=== PATIENT | female | born 1975 | race African-American/Black ===

== ENCOUNTER 2017-08-11 11:14 | Inpatient (IN) | payer MEDICAID ==
[~2017-08-11] VITALS: Ht 162.6 cm; Wt 82.5 kg
[2017-08-11] MEDS ORDERED: SODIUM CHLORIDE 0.9% 1,000 ML IVB ONE (11:30)
[2017-08-11 11:52] LABS: Basophils # (auto) 0 uL; Basophils % (auto) 0.2 % (0.0-2.0); Eosinophils # (auto) 0 uL; Hematocrit 40.8 % (36.0-46.0); Hemoglobin 13.4 g/dL (12.2-16.2); Lymphocytes # (auto) 2.2 uL; Lymphocytes % (auto) 46.8 % (10.0-50.0); Mean Corpuscular Hemoglobin 26.2 pg (28.0-32.0); Mean Corpuscular Hgb Conc. 32.9 g/dL (32.0-36.0); Mean Corpuscular Volume 79.5 fL (80.0-100.0); Mean Platelet Volume 7.7 fL (7.4-10.4); Monocytes # (auto) 0.5 uL; Monocytes % (auto) 10.5 % (0.0-12.0); Neutrophils % (auto) 42.5 % (37.0-80.0); Nucleated Red Blood Cells % 0.3 %; Platelet Count (auto) 247 10^3/uL (140-450); Red Cell Distribution Width 13.2 % (11.6-16.0); White Blood Cell 4.6 10^3/uL (4.4-10.8)
[2017-08-11 12:04] LABS: INR 0.97 (0.9-1.15); Partial Thromboplastin Time 27.5 sec (22.64-33.71); Prothrombin Time 10.6 sec (9.37-12.3)
[2017-08-11 12:14] LABS: Albumin 3.6 g/dL (3.4-5.0); BUN/Creatinine Ratio 18.9; Bilirubin, Total 1.2 mg/dL (0.2-1.0); Calcium 9.3 mg/dL (8.5-10.1); Potassium 4.2 mmol/L (3.5-5.1); Total Protein 8.6 g/dL (6.4-8.2)
[2017-08-11 12:41] LABS: Urine Bilirubin Negative (Negative); Urine Blood Negative /uL (Negative); Urine Color Yellow (Yellow); Urine Glucose Normal (Normal); Urine Ketone Negative (Negative); Urine Mucus FEW (None Seen); Urine Nitrite Negative (Negative); Urine RBC <1 /hpf (0 - 4); Urine Squamous Epithelial Cell FEW /hpf (<5); Urine Urobilinogen Normal (Negative); Urine pH 6.5 (5.0-8.0)
[2017-08-11] MEDS ORDERED: diphenhdrAMINE HCL 50 MG/1 ML VL IV ONE (13:45)
[2017-08-11] MEDS ORDERED: KETOROLAC TROMETH 30 MG/ML 1ML VIAL IV ONE (14:30)
[2017-08-11] MEDS ORDERED: SODIUM CHLORIDE 0.9% 1,000 ML IV SCH (16:36)
[2017-08-11] MEDS ORDERED: LACTULOSE 20Gm/30ML SOLN PO PRN (16:45)
[2017-08-11] MEDS ORDERED: cefTRIAXone 1GM/50ML D5W 50 ML IV ONE (16:45)
[2017-08-11] MEDS ORDERED: PROMETHAZINE HCL 25 MG/ML 1ML IV PRN (16:45)
[2017-08-11] MEDS ORDERED: ACETAMINOPHEN 500 MG TAB PO PRN (16:45)
[2017-08-11] MEDS ORDERED: TEMAZEPAM 15 MG CAP PO PRN (16:45)
[2017-08-11] MEDS ORDERED: LORazepam 0.5 MG TAB PO PRN (16:45)
[2017-08-11] MEDS: PANTOPRAZOLE 40 MG TAB PO SCH (17:10)
[2017-08-11] MEDS: metroNIDAZOLE 500MG/100ML 100 ML IV SCH (18:00)
[2017-08-11] MEDS ORDERED: ALPRAZolam 0.5 MG TAB PO ONE (18:15)
[2017-08-11 18:30] VITALS: BP 140/79
[2017-08-11 20:00] VITALS: BP_SYST 122; BP_SYST 140; BP_DIAS 57; BP_DIAS 79
[2017-08-11] MEDS: HYDROcodone-ACET 5/325MG TAB PO PRN (20:40)
[2017-08-11] MEDS ORDERED: METH10TA6 PO (21:33)
[2017-08-11] MEDS ORDERED: DIPH50TA9 PO (21:35)
[2017-08-11] MEDS ORDERED: PROP60CA8 PO (21:35)
[2017-08-11 22:00] VITALS: BP 128/76
[2017-08-11] MEDS: MORPHINE SULFATE 4 MG/ML SYRG IV PRN (23:15)
[2017-08-12] MEDS ORDERED: PROPRANOLOL HCL 20 MG TAB PO ONE (00:15)
[2017-08-12] MEDS ORDERED: METHIMAZOLE 5 MG TAB PO ONE (00:15)
[2017-08-12] MEDS: metroNIDAZOLE 500MG/100ML 100 ML IV SCH ×3 (00:45→12:00)
[2017-08-12] MEDS ORDERED: ACETAMINOPHEN 500 MG TAB PO ONE (01:30)
[2017-08-12] MEDS ORDERED: diphenhdrAMINE HCL 25 MG CAP PO ONE (01:30)
[2017-08-12 05:00] VITALS: BP 127/64
[2017-08-12 06:03] LABS: Hematocrit 34.3 % (36.0-46.0); Hemoglobin 11.4 g/dL (12.2-16.2); Mean Corpuscular Hemoglobin 26.6 pg (28.0-32.0); Mean Corpuscular Hgb Conc. 33.1 g/dL (32.0-36.0); Mean Corpuscular Volume 80.4 fL (80.0-100.0); Mean Platelet Volume 8.2 fL (7.4-10.4); Platelet Count (auto) 204 10^3/uL (140-450); Red Cell Distribution Width 12.9 % (11.6-16.0); White Blood Cell 3.9 10^3/uL (4.4-10.8)
[2017-08-12 06:18] LABS: Metamyelocytes % 0; Myelocytes % 0; Promyelocytes % 0; Reactive Lymphocytes 0
[2017-08-12 06:42] LABS: Albumin 2.8 g/dL (3.4-5.0); BUN/Creatinine Ratio 20.5; Bilirubin, Total 1.5 mg/dL (0.2-1.0); Calcium 8.6 mg/dL (8.5-10.1); Potassium 3.6 mmol/L (3.5-5.1); Total Protein 6.7 g/dL (6.4-8.2)
[2017-08-12 07:50] LABS: Platelet Estimate Adequate
[2017-08-12 07:51] LABS: Hypochromia Slight
[2017-08-12 07:55] LABS: Burr Cells FEW; Ovalocytes FEW
[2017-08-12 08:00] VITALS: BP 105/48
[2017-08-12] MEDS ORDERED: MORPHINE SULF INJ 2 MG/ML SYRINGE 1ML ONE (08:45)
[2017-08-12] MEDS ORDERED: cefTRIAXone 1GM/50ML D5W 50 ML IV SCH (09:00)
[2017-08-12] MEDS ORDERED: PANTOPRAZOLE 40 MG/10 ML VIAL IV SCH (10:00)
[2017-08-12] MEDS: PROPRANOLOL HCL 20 MG TAB PO SCH ×2 (10:00→22:30)
[2017-08-12] MEDS: METHIMAZOLE 5 MG TAB PO SCH (10:51)
[2017-08-12] MEDS: PANTOPRAZOLE 40 MG TAB PO SCH (10:51)
[2017-08-12 12:00] VITALS: BP 125/47
[2017-08-12] MEDS: SODIUM CHLORIDE 0.9% 1,000 ML IV SCH (16:36)
[2017-08-12 17:20] VITALS: BP 130/72
[2017-08-12 20:00] VITALS: BP 134/68
[2017-08-12] MEDS: MORPHINE SULFATE 4 MG/ML SYRG IV PRN (20:36)
[2017-08-13] VITALS (7 sets, daily range): BP systolic 110–143; BP diastolic 52–63
[2017-08-13] MEDS: diphenhdrAMINE HCL 25 MG CAP PO PRN (02:39)
[2017-08-13 06:01] LABS: Basophils # (auto) 0 uL; Basophils % (auto) 0.7 % (0.0-2.0); Eosinophils # (auto) 0 uL; Eosinophils % (auto) 0.2 % (0.0-7.0); Hematocrit 38.5 % (36.0-46.0); Hemoglobin 12.5 g/dL (12.2-16.2); Lymphocytes # (auto) 2.6 uL; Mean Corpuscular Hemoglobin 26.3 pg (28.0-32.0); Mean Corpuscular Hgb Conc. 32.5 g/dL (32.0-36.0); Mean Platelet Volume 8.4 fL (7.4-10.4); Monocytes # (auto) 0.4 uL; Monocytes % (auto) 9.4 % (0.0-12.0); Neutrophils # (auto) 1.5 uL; Neutrophils % (auto) 33.3 % (37.0-80.0); Nucleated Red Blood Cells % 0.3 %; Platelet Count (auto) 210 10^3/uL (140-450); Red Cell Distribution Width 13.2 % (11.6-16.0); White Blood Cell 4.5 10^3/uL (4.4-10.8)
[2017-08-13 06:04] LABS: Lymphocytes % (auto) 56.4 % (10.0-50.0)
[2017-08-13 06:29] LABS: BUN/Creatinine Ratio 17.8; Calcium 8.3 mg/dL (8.5-10.1); Magnesium 2.1 mg/dL (1.6-2.6); Potassium 3.9 mmol/L (3.5-5.1)
[2017-08-13] MEDS: PANTOPRAZOLE 40 MG TAB PO SCH (09:35)
[2017-08-13] MEDS: METHIMAZOLE 5 MG TAB PO SCH ×3 (09:36→21:56)
[2017-08-13] MEDS: PROPRANOLOL HCL 20 MG TAB PO SCH ×2 (09:36→21:56)
[2017-08-13] MEDS: SODIUM CHLORIDE 0.9% 1,000 ML IV SCH (09:37)
[2017-08-14] MEDS: HYDROcodone-ACET 5/325MG TAB PO PRN (01:31)
[2017-08-14] MEDS: diphenhdrAMINE HCL 25 MG CAP PO PRN (01:31)
[2017-08-14] MEDS: SODIUM CHLORIDE 0.9% 1,000 ML IV SCH (01:35)
[2017-08-14 05:19] VITALS: BP 95/54
[2017-08-14 05:22] VITALS: BP 91/52
[2017-08-14] MEDS ORDERED: METHIMAZOLE 5 MG TAB ONE ×2 (05:36→05:38)
[2017-08-14] MEDS: METHIMAZOLE 5 MG TAB PO SCH (06:08)
[2017-08-14 08:00] VITALS: BP 97/43
[2017-08-14] MEDS: PROPRANOLOL HCL 20 MG TAB PO SCH (08:59)
[2017-08-14] MEDS: PANTOPRAZOLE 40 MG TAB PO SCH (09:01)
[2017-08-14 11:49] LABS: Albumin 2.9 g/dL (3.4-5.0); Bilirubin, Total 0.6 mg/dL (0.2-1.0); Calcium 8.6 mg/dL (8.5-10.1); Potassium 4.1 mmol/L (3.5-5.1); Total Protein 7.2 g/dL (6.4-8.2)
[2017-08-14 13:09] VITALS: BP 105/61
== END 2017-08-14 15:40 | disposition home or self-care (01) ==
LOC: EDBD 11:14 → ER 11:14 → OVERFLOW 11:15 → EAST 18:17
PROVIDERS: ADMIT Internal Medicine; ATTEND Internal Medicine
DX: K80.20 Calculus of gallbladder without cholecystitis without obstruction (principal); I50.9 Heart failure, unspecified; E05.00 Thyrotoxicosis with diffuse goiter without thyrotoxic crisis or storm; I08.1 Rheumatic disorders of both mitral and tricuspid valves; M54.6 Pain in thoracic spine; M79.1 Myalgia; E03.9 Hypothyroidism, unspecified; G89.29 Other chronic pain; M94.0 Chondrocostal junction syndrome [Tietze]; Z87.891 Personal history of nicotine dependence; Z82.49 Family history of ischemic heart disease and other diseases of the circulatory system
CPT/HCPCS: 36415; 71010; 74176; 76705; 76830; 76856; 78226; 80048; 80053; 81001; 81025; 82150; 83690; 83735; 84439; 84443; 84481; 85007; 85025; 85027; 85610; 85652; 85730; 86850; 86900; 86901; 87081; 93306; 94761; 96361; 96374; 96375; J0696; J1885; J3490

== ENCOUNTER 2021-02-02 18:01 | Emergency (ER) | payer MEDICAID ==
[~2021-02-02] VITALS: Ht 162.6 cm; Wt 86.2 kg
[~2021-02-02 18:01] MED LIST: ATEN-60 PO; LEVO500T31 PO; METH10TA6 PO; METR500T PO
[2021-02-02] MEDS: PANTOPRAZOLE 40 MG TAB PO ONE (20:15)
[2021-02-02 20:44] VITALS: BP 121/70
[2021-02-02 22:00] LABS: Urine Bacteria NONE SEEN /hpf (None Seen); Urine Blood Negative /uL (Negative); Urine Specific Gravity 1.016 (1.001-1.035); Urine WBC <1 /hpf (0 - 5)
== END 2021-02-02 23:04 | disposition home or self-care (01) ==
LOC: ER 18:01
DX: K21.9 Gastro-esophageal reflux disease without esophagitis (principal); J01.90 Acute sinusitis, unspecified; Z20.822 Contact with and (suspected) exposure to COVID-19
CPT/HCPCS: 36415; 71045; 81001; 87426

== ENCOUNTER 2021-05-07 23:31 | Emergency (ER) | payer MEDICAID ==
[~2021-05-07] VITALS: Ht 162.6 cm; Wt 91.2 kg
[2021-05-08 02:01] LABS: Urine Bacteria NONE SEEN /hpf (None Seen); Urine Blood Negative /uL (Negative); Urine Mucus FEW (None Seen); Urine Specific Gravity 1.026 (1.001-1.035); Urine WBC <1 /hpf (0 - 5)
[2021-05-08 02:27] LABS: Basophils # (auto) 0 10 ^3/uL (0-0.2); Eosinophils # (auto) 0 10 ^3/uL (0-0.8); Eosinophils % (auto) 0.1 % (0.0-7.0); Hemoglobin 12.4 g/dL (12.2-16.2); Mean Corpuscular Hemoglobin 26.6 pg (28.0-32.0); Monocytes # (auto) 0.5 10 ^3/uL (0-1.3); Red Blood Cells 4.65 10^6/uL (4.0-5.20)
[2021-05-08 02:29] LABS: Basophils % (auto) 0.1 % (0.0-2.0); Hematocrit 37.7 % (36.0-46.0); Lymphocytes # (auto) 2.4 10 ^3/uL (0.4-5.4); Lymphocytes % (auto) 47.8 % (10.0-50.0); Mean Corpuscular Hgb Conc. 32.7 g/dL (32.0-36.0); Mean Corpuscular Volume 81.2 fL (80.0-100.0); Monocytes % (auto) 10.8 % (0.0-12.0); Neutrophils # (auto) 2.1 10 ^3/uL (1.6-8.6); Neutrophils % (auto) 41.2 % (37.0-80.0); Nucleated Red Blood Cells % 0.2 %; Platelet Count (auto) 207 10^3/uL (140-450); Red Cell Distribution Width 13.3 % (11.8-14.3)
[2021-05-08 02:31] LABS: INR 1.02 (0.9-1.15)
[2021-05-08 02:36] LABS: Albumin 3.4 g/dL (3.4-5.0); BUN/Creatinine Ratio 28.2; Magnesium 2.1 mg/dL (1.6-2.6)
[2021-05-08 02:40] LABS: Total Protein 7.6 g/dL (6.4-8.2)
[2021-05-08] MEDS ORDERED: IOHEXOL 300 MG/ML 100ML BOTTLE IJ ONE (05:36)
[2021-05-08 08:03] VITALS: BP 105/43
== END 2021-05-08 08:04 | disposition home or self-care (01) ==
LOC: ER 23:31
DX: R10.11 Right upper quadrant pain (principal); Z98.890 Other specified postprocedural states; Z88.8 Allergy status to other drugs, medicaments and biological substances; Z79.899 Other long term (current) drug therapy
CPT/HCPCS: 36415; 74177; 80053; 81001; 81025; 83605; 83690; 83735; 85025; 85610; 87491; 87591; 99285; Q9967

== ENCOUNTER 2022-09-11 15:39 | Inpatient (IN) | payer MEDICAID ==
[~2022-09-11] VITALS: Ht 162.6 cm; Wt 78.2 kg
[2022-09-11 16:33] LABS: Basophils # (auto) 0.1 10 ^3/uL (0-0.2); Basophils % (auto) 0.6 % (0.0-2.0); Eosinophils # (auto) 0 10 ^3/uL (0-0.8); Eosinophils % (auto) 0.1 % (0.0-7.0); Hematocrit 39.2 % (36.0-46.0); Hemoglobin 12.7 g/dL (12.2-16.2); Lymphocytes # (auto) 2.5 10 ^3/uL (0.4-5.4); Lymphocytes % (auto) 28.1 % (10.0-50.0); Mean Corpuscular Hemoglobin 26.3 pg (28.0-32.0); Mean Corpuscular Hgb Conc. 32.5 g/dL (32.0-36.0); Mean Corpuscular Volume 81.1 fL (80.0-100.0); Monocytes # (auto) 1.1 10 ^3/uL (0-1.3); Monocytes % (auto) 12.2 % (0.0-12.0); Neutrophils # (auto) 5.2 10 ^3/uL (1.6-8.6); Nucleated Red Blood Cells % 0.4 %; Red Blood Cells 4.83 10^6/uL (4.0-5.20); Red Cell Distribution Width 13.3 % (11.8-14.3); White Blood Cell 8.9 10^3/uL (4.4-10.8)
[2022-09-11 17:00] LABS: Albumin 3.3 g/dL (3.4-5.0); Calcium 8.8 mg/dL (8.5-10.1); Potassium 4.1 mmol/L (3.5-5.1)
[2022-09-11] MEDS ORDERED: ALUM & MAG HYDROX-SIMETH LIQ(MAALOX) 30 ML PO ONE (17:00)
[2022-09-11] MEDS ORDERED: FAMOTIDINE 20 MG TAB PO ONE (17:00)
[2022-09-11] MEDS ORDERED: LIDOCAINE VISCOUS 2% 15ML UD PO ONE (17:00)
[2022-09-11] MEDS ORDERED: ONDANSETRON ODT 4 MG TAB PO ONE (17:00)
[2022-09-11 17:03] LABS: BUN/Creatinine Ratio 14.6; Bilirubin, Total 1.8 mg/dL (0.2-1.0); Total Protein 7.8 g/dL (6.4-8.2)
[2022-09-11] MEDS ORDERED: metroNIDAZOLE 500MG/100ML 100 ML IV ONE (19:00)
[2022-09-11] MEDS ORDERED: cefTRIAXone 1GM/50ML D5W 50 ML IV ONE (19:00)
[2022-09-11] MEDS ORDERED: ACETAMINOPHEN 500 MG TAB PO ONE (20:45)
[2022-09-11] MEDS ORDERED: hydrALAZINE HCL 20 MG/ML VL IV PRN (21:00)
[2022-09-11] MEDS ORDERED: ONDANSETRON HCL 4 MG/2 ML VIAL IV PRN (21:00)
[2022-09-11] MEDS: SODIUM CHLORIDE 0.9% 1,000 ML IV SCH (21:20)
[2022-09-12 02:10] VITALS: BP 126/72
[2022-09-12] MEDS ORDERED: CETI1TAB36 PO (02:41)
[2022-09-12] MEDS ORDERED: PROP10TA57 PO (02:44)
[2022-09-12 05:00] VITALS: BP 136/67
[2022-09-12] MEDS: metroNIDAZOLE 500MG/100ML 100 ML IV SCH ×3 (05:38→22:35)
[2022-09-12 07:18] LABS: Basophils # (auto) 0 10 ^3/uL (0-0.2); Basophils % (auto) 0.1 % (0.0-2.0); Eosinophils # (auto) 0 10 ^3/uL (0-0.8); Hematocrit 35.6 % (36.0-46.0); Hemoglobin 11.7 g/dL (12.2-16.2); Lymphocytes # (auto) 1.5 10 ^3/uL (0.4-5.4); Lymphocytes % (auto) 19.3 % (10.0-50.0); Mean Corpuscular Hemoglobin 26.5 pg (28.0-32.0); Mean Corpuscular Hgb Conc. 32.7 g/dL (32.0-36.0); Monocytes # (auto) 0.8 10 ^3/uL (0-1.3); Monocytes % (auto) 10.7 % (0.0-12.0); Neutrophils # (auto) 5.3 10 ^3/uL (1.6-8.6); Neutrophils % (auto) 69.9 % (37.0-80.0); Nucleated Red Blood Cells % 0.1 %; Red Cell Distribution Width 13.1 % (11.8-14.3); White Blood Cell 7.7 10^3/uL (4.4-10.8)
[2022-09-12 07:36] LABS: Albumin 2.8 g/dL (3.4-5.0); BUN/Creatinine Ratio 23.8; Calcium 8.5 mg/dL (8.5-10.1); Potassium 4.8 mmol/L (3.5-5.1)
[2022-09-12 07:38] LABS: Bilirubin, Total 1.7 mg/dL (0.2-1.0); Total Protein 6.8 g/dL (6.4-8.2)
[2022-09-12 09:00] VITALS: BP 145/60
[2022-09-12] MEDS: PANTOPRAZOLE 40 MG/10 ML VIAL INJ IV SCH (10:09)
[2022-09-12] MEDS: SODIUM CHLORIDE 0.9% 1,000 ML IV SCH ×2 (10:10→22:00)
[2022-09-12] MEDS: cefTRIAXone 1GM/50ML D5W 50 ML IV SCH (10:10)
[2022-09-12 13:00] VITALS: BP 132/68
[2022-09-12 17:00] VITALS: BP 120/63
[2022-09-12 22:00] VITALS: BP 142/71
[2022-09-12] MEDS: MORPHINE SULFATE INJ 2 MG/ml SYRG IV PRN (22:38)
[2022-09-13 05:00] VITALS: BP 154/61
[2022-09-13] MEDS: SODIUM CHLORIDE 0.9% 1,000 ML IV SCH ×2 (05:08→22:32)
[2022-09-13] MEDS: metroNIDAZOLE 500MG/100ML 100 ML IV SCH ×3 (05:09→22:17)
[2022-09-13 06:04] LABS: Basophils # (auto) 0 10 ^3/uL (0-0.2); Eosinophils # (auto) 0 10 ^3/uL (0-0.8); Mean Corpuscular Volume 81.6 fL (80.0-100.0); Monocytes # (auto) 0.7 10 ^3/uL (0-1.3); Nucleated Red Blood Cells % 0.1 %; Red Cell Distribution Width 13.1 % (11.8-14.3)
[2022-09-13 06:06] LABS: Basophils % (auto) 0.2 % (0.0-2.0); Hematocrit 35.1 % (36.0-46.0); Hemoglobin 11.5 g/dL (12.2-16.2); Lymphocytes % (auto) 40.5 % (10.0-50.0); Mean Corpuscular Hemoglobin 26.8 pg (28.0-32.0); Mean Corpuscular Hgb Conc. 32.8 g/dL (32.0-36.0); Neutrophils # (auto) 2.3 10 ^3/uL (1.6-8.6); Neutrophils % (auto) 46.3 % (37.0-80.0); Red Blood Cells 4.31 10^6/uL (4.0-5.20)
[2022-09-13 06:17] LABS: Albumin 2.6 g/dL (3.4-5.0); Calcium 8.4 mg/dL (8.5-10.1)
[2022-09-13 06:20] LABS: INR 1.16 (0.9-1.15); Partial Thromboplastin Time 25.1 sec (24.6-33.4)
[2022-09-13 06:22] LABS: BUN/Creatinine Ratio 27.5; Bilirubin, Direct 0.4 mg/dL (0-0.2); Bilirubin, Total 1.2 mg/dL (0.2-1.0); Total Protein 6.5 g/dL (6.4-8.2)
[2022-09-13 08:34] VITALS: BP 122/62
[2022-09-13] MEDS: PANTOPRAZOLE 40 MG/10 ML VIAL INJ IV SCH (09:53)
[2022-09-13] MEDS: cefTRIAXone 1GM/50ML D5W 50 ML IV SCH (09:53)
[2022-09-13] MEDS ORDERED: diphenhdrAMINE HCL 50 MG/1 ML VL ONE (11:38)
[2022-09-13] MEDS ORDERED: diphenhdrAMINE HCL 50 MG/1 ML VL IM ONE (11:45)
[2022-09-13] MEDS ORDERED: FAMOTIDINE (10MG/ML) 2ML VL IV ONE (12:00)
[2022-09-13 13:07] VITALS: BP 112/73
[2022-09-13 16:30] VITALS: BP 111/56
[2022-09-13 16:46] LABS: Free T4 (Free Thyroxine) 6.59 ng/dL (0.89-1.76)
[2022-09-13 16:47] LABS: T3 Total 4.75 ng/mL (0.60-1.81)
[2022-09-13 22:00] VITALS: BP 118/58
[2022-09-14] MEDS: MORPHINE SULFATE INJ 2 MG/ml SYRG IV PRN (02:45)
[2022-09-14 05:00] VITALS: BP 129/50
[2022-09-14] MEDS: metroNIDAZOLE 500MG/100ML 100 ML IV SCH ×2 (06:34→14:04)
[2022-09-14 09:00] VITALS: BP 116/56
[2022-09-14] MEDS: PANTOPRAZOLE 40 MG/10 ML VIAL INJ IV SCH (09:21)
[2022-09-14 13:00] VITALS: BP 117/50
[2022-09-14] MEDS ORDERED: methIMAzole 5 MG TAB PO SCH (14:00)
[2022-09-14] MEDS ORDERED: PROP10TA57 PO (14:44)
[2022-09-14] MEDS ORDERED: METH5T PO (14:44)
[2022-09-14 15:58] VITALS: BP 137/63
[2022-09-14 16:44] VITALS: BP 137/63
== END 2022-09-14 18:00 | disposition home or self-care (01) ==
LOC: ER 15:39 → OVERFLOW 20:50 → WEST WING 09-12 02:30
PROVIDERS: ADMIT Nurse Practitioner; ATTEND Internal Medicine
DX: K80.20 Calculus of gallbladder without cholecystitis without obstruction (principal); E44.0 Moderate protein-calorie malnutrition; I10 Essential (primary) hypertension; R74.01 Elevation of levels of liver transaminase levels; Z20.822 Contact with and (suspected) exposure to COVID-19; E05.00 Thyrotoxicosis with diffuse goiter without thyrotoxic crisis or storm; Z83.3 Family history of diabetes mellitus; Z91.14 Patient's other noncompliance with medication regimen; Z68.29 Body mass index [BMI] 29.0-29.9, adult; Z80.3 Family history of malignant neoplasm of breast; Z82.49 Family history of ischemic heart disease and other diseases of the circulatory system; Z88.8 Allergy status to other drugs, medicaments and biological substances
CPT/HCPCS: 36415; 71045; 74181; 76536; 76705; 78226; 80053; 82248; 83690; 84439; 84443; 84480; 84484; 84702; 85025; 85610; 85730; 87426; 96365; 96367; C9113; G0378; J0696; J2405; J3490; Q0162

== ENCOUNTER 2023-02-03 06:54 | Emergency (ER) | payer MEDICAID, OTHER ==
[~2023-02-03] VITALS: Ht 162.6 cm; Wt 75.0 kg
[~2023-02-03 06:54] MED LIST changes: -ATEN-60 PO; -LEVO500T31 PO; -METH10TA6 PO; +METH5T PO; -METR500T PO; +PROP10TA57 PO
[2023-02-03 07:24] VITALS: BP 190/110
[2023-02-03] MEDS ORDERED: DexAMETHasone SOD PHOS 10MG/1ML VIAL INJ IM ONE (07:30)
[2023-02-03] MEDS ORDERED: AMOX-277 PO ×3 (08:55→09:09)
[2023-02-03] MEDS ORDERED: IBUP600T27 PO ×3 (08:55→09:09)
[2023-02-03] MEDS ORDERED: HYDR-4902 PO ×3 (08:55→09:09)
[2023-02-03] MEDS ORDERED: METH10TA6 PO (09:10)
== END 2023-02-03 08:56 | disposition home or self-care (01) ==
LOC: EDBD 06:54 → ER 06:54
DX: K04.7 Periapical abscess without sinus (principal); E04.9 Nontoxic goiter, unspecified; E03.9 Hypothyroidism, unspecified; Z79.899 Other long term (current) drug therapy; Z88.8 Allergy status to other drugs, medicaments and biological substances; Z91.048 Other nonmedicinal substance allergy status
CPT/HCPCS: 70450; 70490; 96372; 99285; J1100

== ENCOUNTER 2023-05-06 21:01 | Inpatient (IN) | payer MEDICAID ==
[~2023-05-06] VITALS: Ht 162.6 cm; Wt 83.9 kg
[~2023-05-06 21:01] MED LIST changes: +AMOX875T4 PO; +HYDR-4902 PO; +IBUP-1454 PO; +METH-552 PO; -METH5T PO; +METH5TAB98 PO; -PROP10TA57 PO; +PROP1TAB51 PO
[2023-05-06] MEDS ORDERED: ACETAMINOPHEN 500 MG TAB PO ONE (22:00)
[2023-05-06 22:15] LABS: Basophils # (auto) 0 10 ^3/uL (0-0.2); Basophils % (auto) 0.2 % (0.0-2.0); Eosinophils # (auto) 0 10 ^3/uL (0-0.8); Hemoglobin 12.4 g/dL (12.2-16.2); Lymphocytes # (auto) 1.6 10 ^3/uL (0.4-5.4); Lymphocytes % (auto) 21.3 % (10.0-50.0); Mean Corpuscular Hemoglobin 27.8 pg (28.0-32.0); Mean Corpuscular Hgb Conc. 33.5 g/dL (32.0-36.0); Mean Corpuscular Volume 83.1 fL (80.0-100.0); Monocytes # (auto) 0.8 10 ^3/uL (0-1.3); Neutrophils # (auto) 5.3 10 ^3/uL (1.6-8.6); Neutrophils % (auto) 68.5 % (37.0-80.0); Nucleated Red Blood Cells % 0.2 %; Red Blood Cells 4.45 10^6/uL (4.0-5.20); Red Cell Distribution Width 12.5 % (11.8-14.3); White Blood Cell 7.7 10^3/uL (4.4-10.8)
[2023-05-06 22:27] LABS: Albumin 3.2 g/dL (3.4-5.0); BUN/Creatinine Ratio 22.2 (10.0-20.0); Calcium 8.3 mg/dL (8.5-10.1)
[2023-05-06 22:30] LABS: Total Protein 7.8 g/dL (6.4-8.2)
[2023-05-06 22:54] LABS: Potassium 2.9 mmol/L (3.5-5.1)
[2023-05-06] MEDS ORDERED: SODIUM CHLORIDE 0.9% 1,000 ML IV ONE (23:30)
[2023-05-07] MEDS ORDERED: methIMAzole 5 MG TAB PO ONE (02:00)
[2023-05-07] MEDS ORDERED: PROPRANOLOL HCL 1 MG/ML VIAL IV ONE (02:00)
[2023-05-07] MEDS ORDERED: methIMAzole 5 MG TAB ONE ×2 (02:36→02:38)
[2023-05-07] MEDS ORDERED: SODIUM CHLORIDE 0.9% 1,000 ML IV ONE (03:00)
[2023-05-07] MEDS: POTASSIUM CHL 20MEQ/100ML 100 ML IV SCH ×2 (03:13→11:23)
[2023-05-07 03:21] LABS: Urine WBC None Seen /hpf (0 - 5)
[2023-05-07 03:43] LABS: Urine Bacteria FEW /hpf (None Seen); Urine Blood Negative /uL (Negative); Urine Hyaline Cast FEW /lpf (0 - 2); Urine Specific Gravity 1.004 (1.001-1.035)
[2023-05-07 03:44] LABS: Albumin 2.7 g/dL (3.4-5.0); BUN/Creatinine Ratio 33.3 (10.0-20.0); Potassium 3.3 mmol/L (3.5-5.1)
[2023-05-07 03:47] LABS: Bilirubin, Total 2.1 mg/dL (0.2-1.0); Total Protein 6.6 g/dL (6.4-8.2)
[2023-05-07 06:58] LABS: Basophils # (auto) 0 10 ^3/uL (0-0.2); Basophils % (auto) 0.1 % (0.0-2.0); Eosinophils # (auto) 0 10 ^3/uL (0-0.8); Eosinophils % (auto) 0.1 % (0.0-7.0); Hematocrit 34.7 % (36.0-46.0); Hemoglobin 10.9 g/dL (12.2-16.2); Lymphocytes # (auto) 1.6 10 ^3/uL (0.4-5.4); Lymphocytes % (auto) 26.3 % (10.0-50.0); Mean Corpuscular Hemoglobin 27.7 pg (28.0-32.0); Mean Corpuscular Hgb Conc. 31.5 g/dL (32.0-36.0); Mean Corpuscular Volume 87.9 fL (80.0-100.0); Monocytes # (auto) 1.1 10 ^3/uL (0-1.3); Monocytes % (auto) 17.9 % (0.0-12.0); Neutrophils # (auto) 3.3 10 ^3/uL (1.6-8.6); Neutrophils % (auto) 55.6 % (37.0-80.0); Nucleated Red Blood Cells % 0.1 %; Red Blood Cells 3.95 10^6/uL (4.0-5.20); Red Cell Distribution Width 12.9 % (11.8-14.3); White Blood Cell 5.9 10^3/uL (4.4-10.8)
[2023-05-07 07:12] LABS: Albumin 2.8 g/dL (3.4-5.0); Calcium 7.8 mg/dL (8.5-10.1); Potassium 3.5 mmol/L (3.5-5.1)
[2023-05-07 07:15] LABS: BUN/Creatinine Ratio 34.5 (10.0-20.0); Bilirubin, Total 2.3 mg/dL (0.2-1.0); Total Protein 6.4 g/dL (6.4-8.2)
[2023-05-07] MEDS ORDERED: NITROGLYCERIN 0.4 MG SL TAB SL PRN (11:45)
[2023-05-07] MEDS ORDERED: MORPHINE SULFATE INJ 2 MG/ml SYRG IV PRN (11:45)
[2023-05-07] MEDS: PANTOPRAZOLE 40 MG TAB PO SCH (14:29)
[2023-05-07 19:10] LABS: Calcium 8.5 mg/dL (8.5-10.1); Potassium 3.7 mmol/L (3.5-5.1)
[2023-05-07] MEDS: ONDANSETRON HCL 4 MG/2 ML VIAL IV PRN (22:49)
[2023-05-07] MEDS: PROPRANOLOL HCL 20 MG TAB PO SCH (22:56)
[2023-05-08 01:22] LABS: BUN/Creatinine Ratio 25.6 (10.0-20.0); Potassium 3.9 mmol/L (3.5-5.1)
[2023-05-08] MEDS ORDERED: diphenhdrAMINE HCL 50 MG/1 ML VL IV ONE (02:30)
[2023-05-08 06:33] LABS: Basophils # (auto) 0 10 ^3/uL (0-0.2); Basophils % (auto) 0.5 % (0.0-2.0); Eosinophils # (auto) 0 10 ^3/uL (0-0.8); Hematocrit 32.1 % (36.0-46.0); Hemoglobin 10.9 g/dL (12.2-16.2); Lymphocytes # (auto) 1.8 10 ^3/uL (0.4-5.4); Lymphocytes % (auto) 27.3 % (10.0-50.0); Mean Corpuscular Hemoglobin 28.3 pg (28.0-32.0); Mean Corpuscular Volume 83.1 fL (80.0-100.0); Monocytes # (auto) 0.9 10 ^3/uL (0-1.3); Neutrophils # (auto) 3.8 10 ^3/uL (1.6-8.6); Neutrophils % (auto) 58.2 % (37.0-80.0); Nucleated Red Blood Cells % 0.1 %; Red Blood Cells 3.86 10^6/uL (4.0-5.20); Red Cell Distribution Width 12.4 % (11.8-14.3); White Blood Cell 6.5 10^3/uL (4.4-10.8)
[2023-05-08 06:40] LABS: Potassium 3.3 mmol/L (3.5-5.1)
[2023-05-08 06:49] LABS: Albumin 2.8 g/dL (3.4-5.0); BUN/Creatinine Ratio 20.5 (10.0-20.0); Bilirubin, Total 1.6 mg/dL (0.2-1.0); Calcium 8.7 mg/dL (8.5-10.1); Total Protein 6.6 g/dL (6.4-8.2)
[2023-05-08 07:13] LABS: Free T3 12.75 pg/mL (2.3-4.2); Free T4 (Free Thyroxine) 4.79 ng/dL (0.89-1.76)
[2023-05-08] MEDS: PANTOPRAZOLE 40 MG TAB PO SCH (09:33)
[2023-05-08] MEDS: PROPRANOLOL HCL 20 MG TAB PO SCH ×2 (09:34→09:37)
[2023-05-08] MEDS: methIMAzole 5 MG TAB PO SCH (09:43)
[2023-05-08] MEDS ORDERED: FUROSEMIDE 20 MG/2 ML VIAL IV SCH (10:00)
[2023-05-08 12:33] LABS: BUN/Creatinine Ratio 26.3 (10.0-20.0); Calcium 8.5 mg/dL (8.5-10.1); Potassium 3.8 mmol/L (3.5-5.1)
[2023-05-08 18:15] LABS: BUN/Creatinine Ratio 27.5 (10.0-20.0); Calcium 8.1 mg/dL (8.5-10.1); Potassium 3.8 mmol/L (3.5-5.1)
[2023-05-08] MEDS ORDERED: ZYRTEC PO SCH (22:00)
[2023-05-08] MEDS: ACETAMINOPHEN 325 MG TAB PO PRN (23:05)
[2023-05-08 23:58] VITALS: BP 125/38
[2023-05-09] VITALS (10 sets, daily range): BP systolic 95–145; BP diastolic 33–105
[2023-05-09] MEDS: ONDANSETRON HCL 4 MG/2 ML VIAL IV PRN (02:11)
[2023-05-09 05:13] LABS: BUN/Creatinine Ratio 31.6 (10.0-20.0); Calcium 8.4 mg/dL (8.5-10.1); Potassium 3.8 mmol/L (3.5-5.1)
[2023-05-09] MEDS: ACETAMINOPHEN 325 MG TAB PO PRN (08:40)
[2023-05-09] MEDS: ZYRTEC 10 MG PO SCH (10:23)
[2023-05-09] MEDS: methIMAzole 5 MG TAB PO SCH (10:33)
[2023-05-09] MEDS: PANTOPRAZOLE 40 MG TAB PO SCH (10:33)
[2023-05-09] MEDS: PROPRANOLOL HCL 20 MG TAB PO SCH ×2 (10:33→21:15)
[2023-05-09] MEDS ORDERED: POLYETHYLENE GLYCOL 17 GM PWDR PO PRN (11:30)
[2023-05-09] MEDS: guaiFENesin-DM 100/10mg/5ml SYR PO PRN (19:28)
[2023-05-09] MEDS: traMADol HCL 50 MG TAB PO PRN (21:12)
[2023-05-10 05:00] VITALS: BP 133/76
[2023-05-10] MEDS: guaiFENesin-DM 100/10mg/5ml SYR PO PRN ×2 (05:40→10:31)
[2023-05-10] MEDS: traMADol HCL 50 MG TAB PO PRN ×2 (05:40→13:23)
[2023-05-10 09:00] VITALS: BP 128/67
[2023-05-10] MEDS: PANTOPRAZOLE 40 MG TAB PO SCH (10:33)
[2023-05-10] MEDS: methIMAzole 5 MG TAB PO SCH (10:33)
[2023-05-10] MEDS: PROPRANOLOL HCL 20 MG TAB PO SCH (10:36)
[2023-05-10 13:00] VITALS: BP 122/62
[2023-05-10] MEDS: ZYRTEC 10 MG PO SCH (13:22)
[2023-05-10] MEDS ORDERED: METH5TAB98 PO (15:14)
[2023-05-10] MEDS ORDERED: PROP1TAB51 PO (15:14)
[2023-05-10] MEDS ORDERED: AZITTAB PO (15:14)
[2023-05-10 17:00] VITALS: BP 129/64
== END 2023-05-10 17:00 | disposition home or self-care (01) | DRG 427 ==
LOC: ER 21:04 → TELE 05-07 12:19 → DOU IN ICU 05-08 23:47 → TELE-WESTW 05-09 23:40
PROVIDERS: ADMIT Nurse Practitioner Family; ATTEND Nurse Practitioner Acute Care
DX: E05.01 Thyrotoxicosis with diffuse goiter with thyrotoxic crisis or storm (principal); E43 Unspecified severe protein-calorie malnutrition; E66.01 Morbid (severe) obesity due to excess calories; E87.6 Hypokalemia; E87.1 Hypo-osmolality and hyponatremia; K80.20 Calculus of gallbladder without cholecystitis without obstruction; Z91.048 Other nonmedicinal substance allergy status; Z68.32 Body mass index [BMI] 32.0-32.9, adult; Z88.8 Allergy status to other drugs, medicaments and biological substances; Z98.891 History of uterine scar from previous surgery; Z79.899 Other long term (current) drug therapy; Z91.199 Patient's noncompliance with other medical treatment and regimen due to unspecified reason
CPT/HCPCS: 36415; 70450; 71045; 71250; 74176; 76536; 80048; 80053; 80061; 81001; 82306; 83036; 83605; 83880; 84436; 84439; 84443; 84480; 84481; 84484; 85025; 87081; 87426; 93005; 93306; 96361; 96374; 99291; G0378; J2405; J3480

== ENCOUNTER 2023-12-16 12:10 | Emergency (ER) | payer MEDICAID ==
[~2023-12-16] VITALS: Ht 162.6 cm; Wt 87.1 kg
[~2023-12-16 12:10] MED LIST changes: +AZITTAB PO
[2023-12-16] MEDS ORDERED: MORPHINE SULFATE 4 MG/ML SYR/VIAL IM ONE (13:30)
[2023-12-16 13:35] LABS: Basophils # (auto) 0 10 ^3/uL (0-0.2); Basophils % (auto) 0.6 % (0.0-2.0); Eosinophils # (auto) 0 10 ^3/uL (0-0.8); Hematocrit 41.3 % (36.0-46.0); Hemoglobin 13.5 g/dL (12.2-16.2); Lymphocytes # (auto) 2.3 10 ^3/uL (0.4-5.4); Lymphocytes % (auto) 52.9 % (10.0-50.0); Mean Corpuscular Hemoglobin 29.7 pg (28.0-32.0); Mean Corpuscular Hgb Conc. 32.6 g/dL (32.0-36.0); Monocytes # (auto) 0.4 10 ^3/uL (0-1.3); Monocytes % (auto) 8.3 % (0.0-12.0); Neutrophils # (auto) 1.7 10 ^3/uL (1.6-8.6); Neutrophils % (auto) 38.2 % (37.0-80.0); Nucleated Red Blood Cells % 0.3 %; Red Blood Cells 4.54 10^6/uL (4.0-5.20); Red Cell Distribution Width 14.1 % (11.8-14.3); White Blood Cell 4.4 10^3/uL (4.4-10.8)
[2023-12-16 13:58] LABS: Urine Bacteria NONE SEEN /hpf (None Seen); Urine Blood Negative /uL (Negative); Urine Clarity Clear (Clear); Urine Color Yellow (Yellow); Urine Mucus FEW (None Seen); Urine Protein, UAD Negative (Negative); Urine Specific Gravity 1.024 (1.001-1.035); Urine Urobilinogen Normal (Negative); Urine WBC <1 /hpf (0 - 5)
[2023-12-16 16:14] VITALS: TEMP 97.8; O2SAT 99
[2023-12-16 16:31] VITALS: BP 144/87; PULSE 97; RESP 18
[2023-12-16] MEDS ORDERED: IBUP-1456 PO (18:59)
[2023-12-16] MEDS ORDERED: CEPH250C PO (18:59)
== END 2023-12-16 20:04 | disposition home or self-care (01) ==
LOC: ER 12:10
DX: J98.4 Other disorders of lung (principal); M54.42 Lumbago with sciatica, left side; K80.20 Calculus of gallbladder without cholecystitis without obstruction; Z98.890 Other specified postprocedural states; Z88.8 Allergy status to other drugs, medicaments and biological substances; Z79.899 Other long term (current) drug therapy
CPT/HCPCS: 36415; 71045; 81001; 85025; 93005; 96372; 99285; J2270

== ENCOUNTER 2024-06-10 04:51 | Emergency (ER) | payer MEDICAID ==
[~2024-06-10] VITALS: Ht 162.6 cm; Wt 89.1 kg
[~2024-06-10 04:51] MED LIST changes: +CEPH250C PO; +IBUP-1456 PO
[2024-06-10 08:29] VITALS: BP 114/75; PULSE 62; RESP 18; TEMP 98; O2SAT 99
== END 2024-06-10 08:32 | disposition home or self-care (01) ==
LOC: ER 04:51
DX: T81.89XD Other complications of procedures, not elsewhere classified, subsequent encounter (principal); E03.9 Hypothyroidism, unspecified; Z88.8 Allergy status to other drugs, medicaments and biological substances; Z79.1 Long term (current) use of non-steroidal anti-inflammatories (NSAID); Z98.890 Other specified postprocedural states

== ENCOUNTER 2025-09-21 02:53 | Emergency (ER) | payer MEDICAID ==
[~2025-09-21] VITALS: Ht 162.6 cm; Wt 98.4 kg
[2025-09-21 02:55] VITALS: BP 123/82; PULSE 94; RESP 18; TEMP 98.2; O2SAT 96
[2025-09-21] MEDS ORDERED: AZIT-43 PO (03:40)
[2025-09-21] MEDS ORDERED: ACET500T58 PO (03:40)
[2025-09-21] MEDS ORDERED: PRED20TA2 PO (03:40)
[2025-09-21] MEDS ORDERED: ALBUAER3 IN (03:40)
--- NOTE | 2025-09-21 03:42 | ED.PDOC ---
SOB-HPI HPI Comments 50 year old female presents to ER with complaints of cough x 2 weeks. Patient states she's had a cough x 1 year that got worse with productive yellow phlegm x 2 weeks. She reports 9/10 body aches pain and notes that she's followed up with her PCP and has been taking Tessalon Perles without relief. Patient presents to ER afebrile, in no distress. Denies fever, chills, shortness of breath, hemoptysis, night sweats, chest pain, fatigue or any further symptoms/complaints Chief Complaint: Cough Time Seen by MD: 03:04 Primary Care Provider: CLIFTON Reviewed notes: Nurses Notes, Medications, Allergies Information Source: Patient Mode of Arrival: Ambulatory Past Medical History PAST MEDICAL HISTORY: Gallstones, Thyroid Surgical History: Surgical History (Other): Lumbar spinal surgery [employer] History: Denies all [employer] Hx Family History Family History: Unknown Social History Smoker: Non-Smoker Alcohol: Denies ETOH Use Drugs: Denies Drug Use Lives In: Home Constitutional: denies: chills, diaphoresis, fatigue, fever, malaise, sweats, weakness, others EENTM: denies: blurred vision, double vision, ear bleeding, ear discharge, ear drainage, ear pain, ear ringing, eye pain, eye redness, hearing loss, mouth pain, mouth swelling, nasal discharge, nose bleeding, nose congestion, nose pain, photophobia, tearing, throat pain, throat swelling, voice changes, others Respiratory: reports: others (As stated in HPI) Cardiovascular: denies: chest pain, dizzy spells, diaphoresis, Dyspnea on exertion, edema, irregular heart beat, left arm pain, lightheadedness, palpitations, PND, syncope, others Gastrointestinal: denies: abdomen distended, abdominal pain, blood streaked bowels, constipated, diarrhea, dysphagia, difficulty swallowing, hematemesis, melena, nausea, poor appetite, poor fluid intake, rectal bleeding, rectal pain, vomiting, others Genitourinary: denies: abnormal vagina bleeding, burning, dyspareunia, dysuria, flank pain, frequency, hematuria, incontinence, pain, , vagina discharge, urgency, others Neurological: denies: dizziness, fainting, headache, left sided numbness, left sided weakness, numbness, paresthesia, pre-existing deficit, right sided numbness, right sided weakness, seizure, speech problems, tingling, tremors, weakness, others Musculoskeletal: denies: back pain, gout, joint pain, joint swelling, muscle pain, muscle stiffness, neck pain, others Integumetry: denies: bruises, change in color, change in hair/nails, dryness, laceration, lesions, lumps, rash, wounds, others Allergic/Immunocompromised: denies: Difficulty Healing, Frequent Infections, Hives, Itching, others Hematologic/Lymphatic: denies: anemia, blood clots, easy bleeding, easy bruising, swollen glands, others Endocrine: denies: excessive hunger, excessive sweating, excessive thirst, excessive urination, flushing, intolerance to cold, intolerance to heat, unexplained weight gain, unexplained weight loss, others Psychiatric: denies: anxiety, bipolar disorder, depression, hopeless, panic disorder, schizophrenia, sleepless, suicidal, others Physical Exam General Appearance: No Apparent Distress, Obese HEENT: Normal ENT Inspection, PERRL/EOMI, Pharynx Normal, TMs Normal Neck: Full Range of Motion, Non-Tender, Normal Respiratory: Chest Non-Tender, Lungs Clear, No Accessory Muscle Use, No Respiratory Distress, Normal Breath Sounds Cardiovascular: No Murmur, No Gallop, Regular Rate/Rhythm Breast Exam: Deferred Gastrointestinal: Non Tender, No Pulsatile Mass, Soft Genitalia: Deferred Pelvic: Deferred Rectal: Deferred Extremities: Normal capillary refill, Normal range of motion Neurologic: Alert, No Motor Deficits, Normal Affect, Normal Mood, No Sensory Deficits Cerebellar Function: Normal Reflexes: Normal Skin: Dry, Normal Color, Warm Peripheral Pulses: 2+ Radial (R), 2+ Radial (L), 2+ Brachial (R), 2+ Brachial (L) Lymphatic: No Adenopathy Was a procedure done? Was a procedure done?: No Sedation Sedation?: No Differential Dx Differential Diagnosis: Pneumonia, Pulmonary Embolism, Respiratory Distress, URI X-Ray, Labs, Meds, VS Vital Signs Date Time Temp Pulse Resp B/P (MAP) Pulse Ox O2 Delivery O2 Flow Rate FiO2 09/21/25 02:55 98.2 94 18 123/82 96 98.2 Lab Test 09/21/25 03:35 Range/Units White Blood Count 6.6 4.4-10.8 10^3/uL Red Blood Count 4.09 4.0-5.20 10^6/uL Hemoglobin 12.0 L 12.2-16.2 g/dL Hematocrit 35.8 L 36.0-46.0 % Mean Corpuscular Volume 87.5 80.0-100.0 fL Mean Corpuscular Hemoglobin 29.3 28.0-32.0 pg Mean Corpuscular Hemoglobin Concent 33.5 32.0-36.0 g/dL Red Cell Distribution Width 13.9 11.8-14.3 % Platelet Count 272 140-450 10^3/uL Mean Platelet Volume 8.0 6.9-10.8 fL Neutrophils (%) (Auto) 66.2 37.0-80.0 % Lymphocytes (%) (Auto) 24.6 10.0-50.0 % Monocytes (%) (Auto) 9.0 0.0-12.0 % Eosinophils (%) (Auto) 0.0 0.0-7.0 % Basophils (%) (Auto) 0.2 0.0-2.0 % Neutrophils # (Auto) 4.4 1.6-8.6 10 ^3/uL Lymphocytes # (Auto) 1.6 0.4-5.4 10 ^3/uL Monocytes # (Auto) 0.6 0-1.3 10 ^3/uL Eosinophils # (Auto) 0 0-0.8 10 ^3/uL Basophils # (Auto) 0 0-0.2 10 ^3/uL Nucleated Red Blood Cells 0.1 % Sodium Level 140 136-145 mmol/L Potassium Level 3.7 3.5-5.1 mmol/L Chloride Level 105 98-107 mmol/L Carbon Dioxide Level 26 20-31 mmol/L Anion Gap 9 5-15 Blood Urea Nitrogen 6 L 9-23 mg/dL Creatinine 0.85 0.550-1.02 mg/dL Glomerular Filtration Rate Calc 82 >90 mL/min BUN/Creatinine Ratio 7.1 L 10.0-20.0 Serum Glucose 90 74-106 mg/dL Calcium Level 9.0 8.7-10.4 mg/dL Troponin I High Sensitivity 3 L </=34 ng/L PATIENT: JUDD SCOTT MACCT: [id number]: [id number] : 1975 LOC: ER ROOM / BED: / AGE / SEX: 50 / F ADM STATUS: REG ER SERVICE [id number] ORDERING PHYSICIAN: ASIM SANCHES PROCEDURE(s): CXR1 - CHEST XRAY 1 VIEW REASON: COUGH ORDER NUMBER(s): [id number], ACCESSION NUMBER(s): [id number] CHEST RADIOGRAPH Indication: COUGH Technique: Single frontal view of the chest was obtained COMPARISON: XR CHEST 1 VIEW on DOS: 05/26/25, XY CHEST XRAY 1 VIEW on DOS: 12/16/23, XY CHEST XRAY 1 VIEW on DOS: 05/09/23, CT CHEST WITHOUT CONTRAST on DOS: 05/06/23, XY CHEST PORTABLE on DOS: 05/06/23 FINDINGS: Lines and Tubes: None Lungs: Clear Pleura: No effusion. No pneumothorax. Cardiomediastinal contours: Unremarkable Bones: Unremarkable IMPRESSION: 1. No acute disease. ATED BY: JAMES DAVIS MD DICTATED DATE/TIME: 09/21/25358 SIGNED BY: JAMES DAVIS MD SIGNED DATE/TIME: 09/21/25358 CC: Chest x-ray reviewed CBC reviewed without any significant abnormalities BMP reviewed without any significant abnormalities Troponin reviewed- normal Solu-Medrol 125 mg IM ordered Tylenol 650 mg p.o. ordered Patient had improvement in symptoms and in no distress prior to discharge Advised to drink plenty of fluids Advised to follow up with PCP in 1-2 days Patient verbalized understanding and agreeable current plan care Advised to return to ER immediately if symptoms worsen Images Reviewed?: Images reviewed and evaluated by me Time of 1ST Reevaluation: 03:12 Reevaluation 1ST: N/A Patient Education/Counseling: Diagnosis, Treatment, Prognosis, Need For Follow Up Family Education/Counseling: No Family Present SEPSIS Sepsis Screen Date sepsis recognized/suspect: Sep 21, 2025 Time Sepsis recognized/suspect: 254 Recent Procedure: No On Antibiotic Therapy: No Respiratory Rate >20: No Heart Rate >90: Yes Temp<36 C (96.8 F) or >38.3 C: No SBP <90 or MAP <65 mmHG: No New Acute Mental Status Change: No Is the patient on CPAP, BIPAP,: No Physician Orders Chest Xray 1 View (09/21/25 03:09) Vital Signs Date Time Temp Pulse Resp B/P (MAP) Pulse Ox O2 Delivery O2 Flow Rate FiO2 09/21/25 02:55 98.2 94 18 123/82 96 98.2 Laboratory Tests Test 09/21/25 03:35 White Blood Count 6.6 10^3/uL (4.4-10.8) Departure 1 Departure Time of Disposition: 03:38 Impression: Primary Impression: Bronchitis Disposition: HOME / SELF CARE / HOMELESS Condition: Stable e-Prescriptions Azithromycin (Azithromycin) 250 Mg Tab 250 MG PO DAILY MDD 500 for 5 Days, #6 TAB 0 Refills 2 TABLETS ORALLY ON DAY ONE, THEN 1 TABLET ORALLY DAILY FOR 4 DAYS Prov: ASIM SANCHES 09/21/25 Albuterol Sulfate (VENTOLIN MDI) 90 Mcg Ih 2 PUFF IN Q6HPRN, #1 INH 0 Refills Prov: ASIM SANCHES 09/21/25 Prednisone (Prednisone) 20 Mg Tab 20 MG PO BID for 5 Days, #10 TAB 0 Refills Prov: ASIM SANCHES 09/21/25 Acetaminophen (Acetaminophen) 500 Mg Tab 500 MG PO Q4HPRN PRN, #30 TAB 0 Refills Prov: ASIM SANCHES 09/21/25 Discharged With: Self Critical Care Note Critical Care Time?: No Stability Stability form required: No Heart Score Heart Score: Heart Score Response (Comments) Value History N/A 0 EKG N/A 0 Age N/A 0 Risk Factors N/A 0 Troponin N/A 0 Total 0 ASIM SANCHES Sep 21, 2025 03:42
[2025-09-21] MEDS: ACETAMINOPHEN 325 MG TAB PO ONE (03:45)
[2025-09-21] MEDS: methylPREDNISolone SOD SUCC 125 MG/2 ML VL IM ONE (03:45)
[2025-09-21 03:55] LABS: Hematocrit 35.8 % (36.0-46.0); Hemoglobin 12.0 g/dL (12.2-16.2); Mean Corpuscular Hemoglobin 29.3 pg (28.0-32.0); Mean Corpuscular Volume 87.5 fL (80.0-100.0); Nucleated Red Blood Cells % 0.1 %
--- NOTE | 2025-09-21 04:02 | DVH ---
CHEST RADIOGRAPH Indication: COUGH Technique: Single frontal view of the chest was obtained COMPARISON: XR CHEST 1 VIEW on DOS: 05/26/25, XY CHEST XRAY 1 VIEW on DOS: 12/16/23, XY CHEST XRAY 1 EW on DOS: 05/09/23, CT CHEST WITHOUT CONTRAST on DOS: 05/06/23, XY CHEST PORTABLE on DOS: 05/06/23 FINDINGS: Lines and Tubes: None Lungs: Clear Pleura: No effusion. No pneumothorax. Cardiomediastinal contours: Unremarkable Bones: Unremarkable IMPRESSION: 1. No acute disease.
[2025-09-21 04:12] LABS: Chloride 105 mmol/L (98-107); Potassium 3.7 mmol/L (3.5-5.1); Sodium 140 mmol/L (136-145)
[2025-09-21 04:13] LABS: Anion Gap 9 (5-15); Calcium 9.0 mg/dL (8.7-10.4); Carbon Dioxide 26 mmol/L (20-31)
[2025-09-21 04:18] LABS: BUN/Creatinine Ratio 7.1 (10.0-20.0); Glucose 90 mg/dL (74-106)
[2025-09-21 04:30] LABS: Blood Urea Nitrogen 6 mg/dL (9-23)
== END 2025-09-21 07:50 | disposition home or self-care (01) ==
LOC: ER 02:53
DX: J40 Bronchitis, not specified as acute or chronic (principal); E03.9 Hypothyroidism, unspecified; Z98.890 Other specified postprocedural states
CPT/HCPCS: 36415; 71045; 80048; 84484; 85025; 96372; 99284; J2919